=== PATIENT | female | born 1975 | race Caucasian/White ===

== ENCOUNTER 2020-12-12 17:07 | Emergency (ER) | payer OTHER, SELFPAY ==
[2020-12-12 17:18] VITALS: BP 132/74; PULSE 72; RESP 18; TEMP 36.6; O2SAT 100; BMI 23.6
--- NOTE | 2020-12-12 17:34 | ED_ITS ---
HPI - Skin/Abscess/Foreign Bdy General Chief complaint: Animal Bite Stated complaint: bug bite Time Seen by Provider: 12/12/20 17:27 Source: patient Mode of arrival: ambulatory Limitations: no limitations History of Present Illness HPI narrative: Patient is a 45-year-old female with no significant past medical history who states approximately 2 weeks ago she sustained a bug bite just below her left knee, she states it has gotten worse and turned red and painful. She also has a ring around it of a little bubbles that are yellow in color, she states they did week but now they are not and they are painful, she describes the pain as burning sensation. She describes it as an 8/10. She did not take taking any medications. She has full range of motion of her knee and no complaints on her knee. Related Data Previous Rx's Medication Instructions Recorded doxycycline hyclate 100 mg tablet 100 mg PO BID 7 Days #14 tab 12/12/20 Allergies Allergy/AdvReac Type Severity Reaction Status Date / Time No Known Allergies Allergy Verified 12/12/20 17:16 Review of Systems Review of Systems: Yes all other systems are reviewed and are negative [facility] Social History Social History Patient : No Physical Exam Vital Signs: Vital Signs: Last Vital Signs Temp 97.9 F 12/12/20 17:18 Pulse 72 12/12/20 17:18 Resp 18 12/12/20 17:18 BP 132/74 12/12/20 17:18 Pulse Ox 100 12/12/20 17:18 Body Mass Index 23.6 Const: General: cooperative, healthy appearing, comfortable, no acute distress and well developed Orientation/consciousness: patient oriented x3 Limitations: no limitations HENMT: Head: Yes normal to inspection Eyes: General: appearance normal, both eyes and all related structures Neck: Neck: Yes normal visual inspection and Yes full ROM Resp: Effort & Inspection: normal respiratory effort and able to speak in complete sentences Skin: Other: Inferior and lateral to left knee, patient has an area approximately 3 cm, circular, erythematous and warm. The area is surrounded by small vesicular spots that do not drain when palpated. Neuro: General: patient oriented x3 Extrem: General: Yes normal to inspection Discharge Plan Discharge Clinical Impression: Cellulitis and abscess of left leg Shingles Qualifiers: Herpes zoster complications: without complications Qualified Code(s): B02.9 - Zoster without complications Patient Disposition: Home, Self-Care Instructions: Shingles (ED), Cellulitis (ED) Prescriptions: New doxycycline hyclate 100 mg tablet 100 mg PO BID 7 Days Qty: 14 RF: 0
== END 2020-12-12 17:59 | disposition home or self-care (01) ==
LOC: HO.ED 17:38
PROVIDERS: Emergency Provider Internal Medicine
DX: L03.116 Cellulitis of left lower limb (principal); B02.9 Zoster without complications
CPT/HCPCS: 99283; 99284